=== PATIENT | female | born 1965 ===

== ENCOUNTER 2017-02-26 17:47 | Emergency (ER) | payer OTHER ==
[2017-02-26] MEDS ORDERED: MOTRIN PO ONE (19:28)
[2017-02-26] MEDS ORDERED: CLEOCIN PO ONE (19:28)
--- NOTE | 2017-02-26 19:28 | Emergency Department Report ---
HPI - General Chief Complaint: Sore Throat Time Seen by Provider: 02/26/17 19:11 - HPI HPI: Patient here reports sore throat with difficulty swallowing 3 days. She reports headache to what extent to the front of her head. Denies any nausea or vomiting. Denies any abdominal pain. Denies any cough in or drooling. She reports chills and says she had fever yesterday and took Motrin and she does not have any fever today. Denies any chest pain or shortness of breath. Denies any nasal congestion or sinus pain or pressure. ED Past Medical Hx - Past Medical History Previous Medical History?: Yes Hx Sickle Cell Disease: Yes (Trate) - Surgical History Past Surgical History?: Yes Additional Surgical History: Right knee replacement - Family History Family history: no significant - Social History Smoking Status: Never Smoker Substance Use Type: None Other Social History: Single - Medications Home Medications: Home Medications Medication Instructions Recorded Confirmed Last Taken Type Clindamycin [Clindamycin CAP] 600 mg PO BID #30 capsule 02/26/17 Unknown Rx Ibuprofen [Motrin] 600 mg PO Q8H PRN #15 tablet 02/26/17 Unknown Rx ED Review of Systems ROS: Stated complaint: SORETHROAT/HARD TO SWALLOW Other details as noted in HPI Comment: All other systems reviewed and negative Constitutional: chills, fever Eyes: denies: vision change ENT: throat pain. denies: ear pain, congestion Respiratory: no symptoms reported Cardiovascular: denies: chest pain, palpitations, edema, syncope Gastrointestinal: denies: abdominal pain, nausea, vomiting, diarrhea Musculoskeletal: denies: back pain, joint swelling, arthralgia, myalgia Skin: denies: rash Neurological: headache. denies: weakness, numbness, paresthesias, confusion, abnormal gait, vertigo Physical Exam - Physical Exam Vital Signs: Vital Signs 02/26/17 17:57 Temperature 98.8 F Pulse Rate 105 H Blood Pressure 150/98 O2 Sat by Pulse 97 Oximetry Vital Signs 02/26/17 02/26/17 02/26/17 17:57 20:12 20:15 Temperature 98.8 F Pulse Rate 105 H 92 H Respiratory 18 Rate Blood Pressure 150/98 O2 Sat by Pulse 97 Oximetry General: This is a 51-year-old female well-nourished well-developed in no acute distress Physical Exam: Head: Normocephalic, atraumatic. No abrasions, laceration or contusion Neck: Supple, Positive anterior cervical adenopathy. Full range of motion. No C-spine tenderness. No muscular tenderness Eyes: Wayne sclera nonicteric, no conjunctival injection, bilateral pupils equal and reactive to light. Bilateral EOM intact. Ears: Bilateral TMs pearly brandt, bilaterally EAC without any redness swelling or drainage. Nose: Wayne nasal mucosa without any erythema or congestion. No drainage. Mouth: Moist, positive pharyngeal exudate and erythema. Uvula is midline and oral airways patent. Tongue normal CV:S1, S2 , tachycardia 105, reg rhythm. No murmurs Lungs: Clear to auscultate to lung decker. Normal work of breathing. Neurological: GCS of 15, speech is clear and fluid, no facial droop.. No pronator drift and negative Romberg. Patient is alert and oriented 3 with no focal neurological deficit. Abdomen: Soft, normal bowel sounds in all quadrants. No rigidity or distention. Extremity: No clubbing, cyanosis or edema. +2 pulses in all extremities. No neurovascular compromise. Capillary refill is less than 3 seconds. Skin: Clean dry and intact, no rash or lesions. PSYCH: Smiling and appropriate for age ED Course Vital Signs 02/26/17 17:57 Temperature 98.8 F Pulse Rate 105 H Blood Pressure 150/98 O2 Sat by Pulse 97 Oximetry Vital Signs 02/26/17 02/26/17 02/26/17 17:57 20:12 20:15 Temperature 98.8 F Pulse Rate 105 H 92 H Respiratory 18 Rate Blood Pressure 150/98 O2 Sat by Pulse 97 Oximetry - Reevaluation(s) Reevaluation #1: 02/26/17 20:21 Patient received Motrin 800 mg by mouth for sore throat and clindamycin 300 mg by mouth in emergency room to cover strep. ED Medical Decision Making - Medical Decision Making MDM ED course: PAtient complaining of sore throat and headache over the last 3 days. She is also complaining of fever and chills. Patient would enlarge lymph nodes, complaining of fever and chills, exudative and erythema oropharynx. Based on [facility] criteria Patient will be treated for exudative pharyngitis. Patient was given Motrin and clindamycin in emergency room. She voiced understanding of diagnosis and treatment plan. 1. Exudative pharyngitis-patient given clindamycin 300 mg in emergency room and will be discharged home with prescription for clindamycin 2. Headache, acute not intractable -patient given Motrin 800 mg by mouth in emergency room which relieved her headache and sore throat and discharged home with prescription for Motrin when necessary. Patient instructed to follow up with her primary care physician in 3-5 days. Critical care attestation.: If time is entered above; I have spent that time in minutes in the direct care of this critically ill patient, excluding procedure time. ED Disposition Clinical Impression: Exudative pharyngitis Headache Qualifiers: Headache type: unspecified Headache chronicity pattern: acute headache Intractability: not intractable Qualified Code(s): R51 - Headache Disposition: DC- TO HOME OR SELFCARE Is pt being admited?: No Does the pt Need Aspirin: No Condition: Stable Instructions: Strep Throat (ED), Acute Headache (ED) Additional Instructions: Please gargle with warm saltwater 3 times a day disorder relieve his sore throat Take Motrin for headache and pain as prescribed Take clindamycin as prescribed Follow-up U primary care physician in 4 days Prescriptions: Clindamycin [Clindamycin CAP] 600 mg PO BID #30 capsule Ibuprofen [Motrin] 600 mg PO Q8H PRN #15 tablet PRN Reason: Pain Referrals: PRIMARY CAREMD [Primary Care Provider] - 03/02/17 Forms: Work/School Release Form(ED)
[2017-02-26 20:41] VITALS: BP 147/88
== END 2017-02-26 20:42 | disposition home or self-care (01) ==
LOC: ED 17:47
DX: J02.9 Acute pharyngitis, unspecified (principal); R51 Headache; R13.10 Dysphagia, unspecified; R50.9 Fever, unspecified
CPT/HCPCS: 99282